=== PATIENT | female | born 1985 | race Caucasian/White ===

== ENCOUNTER 2022-07-16 10:55 | Emergency (ER) | payer OTHER ==
[~2022-07-16] VITALS: Ht 154.9 cm; Wt 154.9 kg
[~2022-07-16 10:55] MED LIST: DICLOFENAC POTA50 MG PO; GEODON40 MG PO; MOTRIN800 MG PO; PERCOCET 325 MG1 TA2 PO; PHENERGAN25 M1 PO; PRENATAL1 TA1 PO; SYNTHROID0.112 MG PO; SYNTHROID0.125 MG PO; WELLBUTRIN100 MG PO; XANAX1 MG PO
[2022-07-16 11:51] LABS: BILIRUBIN Negative (Negative); BLOOD Negative (Negative); CLARITY Cloudy (Clear); COLOR Yellow (Yellow); GLUCOSE Negative (Negative); KETONE Negative (Negative); LEUKO ESTERASE 1+ (Negative); NITRITE Negative (Negative); PH 6.5 (4.5-8.0); SPECIFIC GRAVITY 1.015 (1.001-1.030)
[2022-07-16 12:01] LABS: URINE AMPHETAMINES > 1000 (1000ng/ml); URINE BARBITURATES < 200 (200ng/ml); URINE BENZODIAZEPINES < 200 (200ng/ml); URINE CANNABINOIDS (THC) > 50 (50ng/ml); URINE COCAINE < 300 (300ng/ml); URINE METHADONE < 300 (300ng/ml); URINE OPIATES < 300 (300ng/ml)
[2022-07-16 12:04] LABS: BACTERIA 2+; EPITHELIAL CELLS 16-20; MUCOUS 1+
[2022-07-16 12:09] LABS: URINE PHENCYCLIDINE < 25 (25ng/ml)
[2022-07-16 12:17] LABS: BASO # 0.1 10*3/uL (0.0-0.1); BASO % 0.5 % (0.0-1.0); EOS # 0.1 10*3/uL (0.0-0.4); EOS % 0.7 % (1.0-4.0); HEMATOCRIT 41.5 % (37.0-47.0); LYMPH # 2.6 10*3/uL (1.3-4.4); MEAN CELL VOLUME 92.2 fl (81.0-99.0); MEAN CORPUSCULAR HGB CONC 32.5 g/dl (33.0-37.0); MEAN PLATELET VOLUME 10.6 fl (9.6-12.3); MONO # 0.6 10*3/uL (0.1-1.0); MONO % 5.4 % (3.0-9.0); NEUT # 8.4 10*3/uL (2.3-7.9); NEUT % 70.6 % (47.0-73.0); PLATELET COUNT AUTOMATED 326 10*3/uL (130-400); RED CELL DISTRI WIDTH 15.1 % (0-14.5); WHITE BLOOD COUNT 11.9 10*3/uL (4.8-10.8)
[2022-07-16] MEDS ORDERED: METRONIDAZOLE500 M1 PO ×2 (12:30→18:03)
[2022-07-16 12:36] LABS: ALKALINE PHOSPHATASE 111 U/L (45-117); BUN 10 mg/dl (7-24); CHLORIDE 104 mmol/L (98-107); LIPASE 60 U/L (73-393); POTASSIUM 3.2 mmol/L (3.5-5.1); SGPT/ALT 38 U/L (12-78); SODIUM 135 mmol/L (136-145); TOTAL PROTEIN 8.8 gm/dL (6.4-8.2)
[2022-07-16] MEDS ORDERED: VIBRAMYCIN100 MG PO (18:03)
== END 2022-07-16 13:39 | disposition home or self-care (01) ==
LOC: ED 10:55
PROVIDERS: Nurse Practitioner Family
DX: R07.9 Chest pain, unspecified (principal); F41.9 Anxiety disorder, unspecified; E87.6 Hypokalemia; A64 Unspecified sexually transmitted disease; Z88.0 Allergy status to penicillin; Z98.890 Other specified postprocedural states; Z90.89 Acquired absence of other organs

== ENCOUNTER 2022-07-16 17:13 | Emergency (ER) | payer OTHER ==
[~2022-07-16 17:13] MED LIST changes: +METRONIDAZOLE500 M1 PO
[2022-07-16] MEDS ORDERED: METRONIDAZOLE500 M1 PO (18:03)
[2022-07-16] MEDS ORDERED: VIBRAMYCIN100 MG PO (18:03)
== END 2022-07-16 18:31 | disposition home or self-care (01) ==
LOC: ED 17:13
DX: A64 Unspecified sexually transmitted disease (principal); A59.9 Trichomoniasis, unspecified; Z88.0 Allergy status to penicillin; Z98.890 Other specified postprocedural states; Z90.89 Acquired absence of other organs

== ENCOUNTER 2022-07-16 18:50 | Emergency (ER) | payer OTHER ==
[~2022-07-16 18:50] MED LIST changes: +VIBRAMYCIN100 MG PO
== END 2022-07-16 19:02 | disposition left against medical advice (07) ==
LOC: ED 18:50
DX: Z53.21 Procedure and treatment not carried out due to patient leaving prior to being seen by health care provider (principal)

== ENCOUNTER 2022-07-16 19:48 | Emergency (ER) | payer OTHER ==
[~2022-07-16] VITALS: Ht 167.6 cm; Wt 113.4 kg
== END 2022-07-17 04:50 ==
LOC: ED 19:48
DX: F15.90 Other stimulant use, unspecified, uncomplicated (principal); F23 Brief psychotic disorder; Z88.0 Allergy status to penicillin; Z98.890 Other specified postprocedural states; Z90.89 Acquired absence of other organs